=== PATIENT | male | born 1930 | race Caucasian/White ===

== ENCOUNTER 2017-09-20 11:43 | Observation (INO) | payer MEDICARE, MEDICAID ==
[2017-09-21 00:57] LABS: ADD MAN DIFF? NO
[2017-09-21] MEDS: SOD CHLORIDE 0.9% 500 ML IV (00:57)
[2017-09-21 01:12] LABS: WHITE BLOOD COUNT 7.6 10^3/ul (4.8-10.8)
[2017-09-21 01:12] LABS: BASOPHIL # 0.1 10^3/ul (0.0-0.1); BASOPHILS % 0.8 % (0.0-2.0); EOSINOPHILS # 0.5 10^3/ul (0.0-0.5); EOSINOPHILS % 6.9 % (0.0-7.0); HEMOGLOBIN 12.4 g/dl (14.0-18.0); LYMPHOCYTES # 1.4 10^3/ul (0.8-2.9); LYMPHOCYTES % 17.7 % (15.0-51.0); MEAN CORPUSCULAR HEMOGLOBIN 31.4 pg (29.0-33.0); MEAN CORPUSCULAR HGB CONC 34.4 g/dl (32.0-37.0); MEAN CORPUSCULAR VOLUME 91.1 fl (82.0-101.0); MEAN PLATELET VOLUME 10.7 fl (7.4-10.4); MONOCYTE # 0.6 10^3/ul (0.3-0.9); NEUTROPHIL # 5.1 10^3/ul (1.6-7.5); NEUTROPHILS % 66.3 % (39.0-77.0); PLATELET COUNT 211 10^3/UL (140-415); RED BLOOD COUNT 3.95 10^6/ul (4.70-6.10); RED CELL DISTRIBUTION WIDTH 13.6 % (11.5-14.5)
[2017-09-21 01:25] LABS: ALANINE AMINOTRANSFERASE 25 IU/L (13-69); ALBUMIN 4.1 g/dl (3.3-4.9); ALBUMIN/GLOBULIN RATIO 1.32; ALKALINE PHOSPHATASE 76 IU/L (42-121); ANION GAP 15 (8-16); ASPARTATE AMINO TRANSFERASE 18 IU/L (15-46); BILIRUBIN,INDIRECT 0.2 mg/dl (0-1.1); BILIRUBIN,TOTAL 0.2 mg/dl (0.2-1.3); BLOOD UREA NITROGEN 24 mg/dl (7-20); CALCIUM 8.8 mg/dl (8.4-10.2); CARBON DIOXIDE 26 mmol/L (21-31); CHLORIDE 104 mmol/L (97-110); CREATININE 1.33 mg/dl (0.61-1.24); GLUCOSE 84 mg/dl (70-220); LIPASE 102 U/L (23-300); POTASSIUM 4.2 mmol/L (3.5-5.1); SODIUM 141 mmol/L (135-144); TOTAL PROTEIN 7.2 g/dl (6.1-8.1)
[2017-09-21] MEDS: PIPER-TAZO 3.375 GM IV (PMX) 50 ML IVPB (01:58)
[2017-09-21] MEDS ORDERED: morphine 2 MG INJ IV (05:00)
[2017-09-21] MEDS ORDERED: ACETAMINOPHEN 325 MG TAB PO (05:00)
[2017-09-21] MEDS ORDERED: ALBUTEROL/IPRATROPIUM (NEB) 3 ML AMP HHN (05:00)
[2017-09-21] MEDS ORDERED: HYDROCODONE/APAP (5/325) TAB PO (05:00)
[2017-09-21] MEDS ORDERED: ONDANSETRON 4 MG INJ IV (05:00)
[2017-09-21] MEDS ORDERED: NACL 0.9% 3 ML SYG IV (05:00)
[2017-09-21] MEDS: DOCUSATE SODIUM 100 MG CAP PO ×2 (09:05→21:15)
[2017-09-21] MEDS: FOLIC ACID 1 MG TAB PO (09:05)
[2017-09-21 09:18] LABS: ADD MAN DIFF? NO
[2017-09-21 09:20] LABS: BASOPHIL # 0.1 10^3/ul (0.0-0.1); BASOPHILS % 0.9 % (0.0-2.0); EOSINOPHILS # 0.5 10^3/ul (0.0-0.5); EOSINOPHILS % 6.2 % (0.0-7.0); HEMATOCRIT 41.4 % (42.0-52.0); HEMOGLOBIN 14.5 g/dl (14.0-18.0); LYMPHOCYTES # 1.2 10^3/ul (0.8-2.9); LYMPHOCYTES % 13.9 % (15.0-51.0); MEAN CORPUSCULAR HEMOGLOBIN 31.6 pg (29.0-33.0); MEAN CORPUSCULAR VOLUME 90.2 fl (82.0-101.0); MEAN PLATELET VOLUME 10.5 fl (7.4-10.4); MONOCYTE # 0.6 10^3/ul (0.3-0.9); MONOCYTES % 7.1 % (0.0-11.0); NEUTROPHIL # 6.1 10^3/ul (1.6-7.5); NEUTROPHILS % 71.6 % (39.0-77.0); PLATELET COUNT 225 10^3/UL (140-415); RED BLOOD COUNT 4.59 10^6/ul (4.70-6.10); RED CELL DISTRIBUTION WIDTH 13.5 % (11.5-14.5)
[2017-09-21 09:20] LABS: WHITE BLOOD COUNT 8.6 10^3/ul (4.8-10.8)
[2017-09-21] MEDS ORDERED: VANCOMYCIN IV PER PHARMACY XX (09:30)
[2017-09-21 09:39] LABS: HEMOGLOBIN A1C 5.3 % (0-5.9)
[2017-09-21 09:40] LABS: ALANINE AMINOTRANSFERASE 26 IU/L (13-69); ALBUMIN 4.3 g/dl (3.3-4.9); ALBUMIN/GLOBULIN RATIO 1.13; ALKALINE PHOSPHATASE 88 IU/L (42-121); ANION GAP 17 (8-16); ASPARTATE AMINO TRANSFERASE 21 IU/L (15-46); BILIRUBIN,INDIRECT 0.6 mg/dl (0-1.1); BILIRUBIN,TOTAL 0.6 mg/dl (0.2-1.3); BLOOD UREA NITROGEN 20 mg/dl (7-20); CALCIUM 9.6 mg/dl (8.4-10.2); CARBON DIOXIDE 27 mmol/L (21-31); CHLORIDE 104 mmol/L (97-110); CREATININE 1.23 mg/dl (0.61-1.24); GLUCOSE 91 mg/dl (70-220); POTASSIUM 4.1 mmol/L (3.5-5.1); SODIUM 144 mmol/L (135-144); TOTAL PROTEIN 8.1 g/dl (6.1-8.1)
[2017-09-21] MEDS: FAMOTIDINE 20 MG TAB PO (11:08)
[2017-09-21] MEDS: ASPIRIN 81 MG TAB PO (11:08)
[2017-09-21] MEDS: TRIMETHOPRIM/SULFAMETHOX (DS) TAB PO ×2 (11:08→21:15)
[2017-09-21] MEDS: HEPARIN 5,000 UNIT/0.5 ML VIAL SC ×2 (11:09→21:23)
[2017-09-21] MEDS: VANCOMYCIN 1 GM (PMX) 250 ML IVPB (11:09)
[2017-09-21] MEDS: DOXAZOSIN 4 MG TAB PO (19:45)
[2017-09-21] MEDS ORDERED: DOXAZOSIN 4 MG TAB PO (21:00)
[2017-09-21] MEDS: TAMSULOSIN (SR) 0.4 MG CAP PO (21:15)
[2017-09-22 06:21] LABS: ADD MAN DIFF? NO
[2017-09-22 06:37] LABS: BASOPHIL # 0.1 10^3/ul (0.0-0.1); BASOPHILS % 0.7 % (0.0-2.0); EOSINOPHILS # 0.4 10^3/ul (0.0-0.5); EOSINOPHILS % 5.6 % (0.0-7.0); HEMATOCRIT 35.9 % (42.0-52.0); HEMOGLOBIN 12.3 g/dl (14.0-18.0); LYMPHOCYTES # 1.3 10^3/ul (0.8-2.9); LYMPHOCYTES % 19.9 % (15.0-51.0); MEAN CORPUSCULAR HEMOGLOBIN 31.4 pg (29.0-33.0); MEAN CORPUSCULAR HGB CONC 34.3 g/dl (32.0-37.0); MEAN CORPUSCULAR VOLUME 91.6 fl (82.0-101.0); MEAN PLATELET VOLUME 10.8 fl (7.4-10.4); MONOCYTE # 0.5 10^3/ul (0.3-0.9); MONOCYTES % 7.7 % (0.0-11.0); NEUTROPHIL # 4.5 10^3/ul (1.6-7.5); PLATELET COUNT 209 10^3/UL (140-415); RED BLOOD COUNT 3.92 10^6/ul (4.70-6.10); RED CELL DISTRIBUTION WIDTH 13.3 % (11.5-14.5)
[2017-09-22 06:37] LABS: WHITE BLOOD COUNT 6.8 10^3/ul (4.8-10.8)
[2017-09-22] MEDS: FAMOTIDINE 20 MG TAB PO (06:39)
[2017-09-22 07:15] LABS: ANION GAP 18 (8-16); BLOOD UREA NITROGEN 27 mg/dl (7-20); CALCIUM 8.6 mg/dl (8.4-10.2); CARBON DIOXIDE 25 mmol/L (21-31); CHLORIDE 104 mmol/L (97-110); CREATININE 1.68 mg/dl (0.61-1.24); GLUCOSE 77 mg/dl (70-220); MAGNESIUM 2.1 mg/dl (1.7-2.5); PHOSPHORUS 4.2 mg/dl (2.5-4.9); POTASSIUM 4.3 mmol/L (3.5-5.1); SODIUM 143 mmol/L (135-144)
[2017-09-22] MEDS: TRIMETHOPRIM/SULFAMETHOX (DS) TAB PO (08:33)
[2017-09-22] MEDS: FOLIC ACID 1 MG TAB PO (08:33)
[2017-09-22] MEDS: DOCUSATE SODIUM 100 MG CAP PO (08:33)
[2017-09-22] MEDS: ASPIRIN 81 MG TAB PO (08:34)
[2017-09-22] MEDS: HEPARIN 5,000 UNIT/0.5 ML VIAL SC (08:45)
[2017-09-22] MEDS ORDERED: VANCOMYCIN 750 MG in DEXTROSE 5% 150 ML IVPB ×2 (11:00→23:00)
[2017-09-22] MEDS: SOD CHLORIDE 0.9% 250 ML IV (12:49)
[2017-09-22] MEDS ORDERED: TRIMETHOPRIM/SULFAMETHOX (SS) TAB PO (21:00)
== END 2017-09-22 18:25 | disposition home or self-care (01) ==
LOC: MS2 09-21 22:05 → E/R 11:43 → MS2 09-21 02:27
DX: L03.115 Cellulitis of right lower limb (principal); K21.9 Gastro-esophageal reflux disease without esophagitis; I10 Essential (primary) hypertension; I48.91 Unspecified atrial fibrillation; E78.5 Hyperlipidemia, unspecified; N40.0 Benign prostatic hyperplasia without lower urinary tract symptoms; Z89.512 Acquired absence of left leg below knee; Z79.82 Long term (current) use of aspirin
CPT/HCPCS: 36415; 73718; 80048; 80053; 83036; 83690; 83735; 84100; 85025; 87040; 96372; 96374; 96375; 99285-25

== ENCOUNTER 2017-11-04 05:43 | Inpatient (IN) | payer MEDICARE ==
[2017-11-04 06:33] LABS: ADD MAN DIFF? NO
[2017-11-04 06:47] LABS: BASOPHIL # 0.1 10^3/ul (0.0-0.1); BASOPHILS % 0.8 % (0.0-2.0); EOSINOPHILS # 0.6 10^3/ul (0.0-0.5); EOSINOPHILS % 7.2 % (0.0-7.0); HEMATOCRIT 35.7 % (42.0-52.0); HEMOGLOBIN 12.6 g/dl (14.0-18.0); LYMPHOCYTES # 1.1 10^3/ul (0.8-2.9); LYMPHOCYTES % 14.3 % (15.0-51.0); MEAN CORPUSCULAR HGB CONC 35.3 g/dl (32.0-37.0); MEAN CORPUSCULAR VOLUME 90.6 fl (82.0-101.0); MEAN PLATELET VOLUME 10.7 fl (7.4-10.4); MONOCYTE # 0.4 10^3/ul (0.3-0.9); MONOCYTES % 5.4 % (0.0-11.0); NEUTROPHIL # 5.6 10^3/ul (1.6-7.5); NEUTROPHILS % 71.9 % (39.0-77.0); PLATELET COUNT 241 10^3/UL (140-415); RED BLOOD COUNT 3.94 10^6/ul (4.70-6.10); RED CELL DISTRIBUTION WIDTH 13.5 % (11.5-14.5)
[2017-11-04 06:47] LABS: WHITE BLOOD COUNT 7.8 10^3/ul (4.8-10.8)
[2017-11-04 06:56] LABS: ALANINE AMINOTRANSFERASE 32 IU/L (13-69); ALBUMIN/GLOBULIN RATIO 1.25; ALKALINE PHOSPHATASE 81 IU/L (42-121); ANION GAP 14 (8-16); ASPARTATE AMINO TRANSFERASE 22 IU/L (15-46); BILIRUBIN,INDIRECT 0.4 mg/dl (0-1.1); BILIRUBIN,TOTAL 0.4 mg/dl (0.2-1.3); CARBON DIOXIDE 28 mmol/L (21-31); CHLORIDE 106 mmol/L (97-110); GLUCOSE 93 mg/dl (70-220); TOTAL PROTEIN 7.2 g/dl (6.1-8.1)
[2017-11-04 06:58] LABS: INR 1.09; PROTIME 14.2 Sec (11.9-14.9); PT RATIO 1.1
[2017-11-04] MEDS ORDERED: ACETAMINOPHEN 1000 MG/100 ML IVPB (07:00)
[2017-11-04 07:13] LABS: BLOOD UREA NITROGEN 24 mg/dl (7-20); CREATININE 1.19 mg/dl (0.61-1.24); POTASSIUM 3.9 mmol/L (3.5-5.1); SODIUM 144 mmol/L (135-144)
[2017-11-04] MEDS ORDERED: THROMBIN 5000 UNIT VIAL (07:37)
[2017-11-04] MEDS ORDERED: LIDOCAINE 1% (MPF) 30 ML INJ (07:37)
[2017-11-04] MEDS ORDERED: HEPARIN 1000 UNITS/ML 10 ML INJ ×2 (07:37→10:37)
[2017-11-04] MEDS ORDERED: GELATIN SIZE 100 SPONGE (07:37)
[2017-11-04] MEDS ORDERED: HEPARIN 1000 UNITS/NS (A-LINE) 0 ML (07:37)
[2017-11-04 07:43] LABS: PARTIAL THROMBOPLASTIN TIME 35.3 Sec (25.0-35.0)
[2017-11-04] MEDS: THROMBIN 5000 UNIT VIAL TOP (07:45)
[2017-11-04] MEDS: GELATIN SIZE 100 SPONGE TOP (07:45)
[2017-11-04] MEDS: HEPARIN 1000 UNITS/ML 10 ML INJ IRR (07:45)
[2017-11-04] MEDS ORDERED: MIDAZOLAM 1 MG/ML 2 ML INJ (07:53)
[2017-11-04] MEDS ORDERED: ETOMIDATE 20 MG INJ (07:53)
[2017-11-04] MEDS ORDERED: ONDANSETRON 4 MG INJ (07:53)
[2017-11-04] MEDS ORDERED: METOCLOPRAMIDE 10 MG INJ (07:53)
[2017-11-04] MEDS ORDERED: ROCURONIUM 50 MG INJ (07:53)
[2017-11-04] MEDS ORDERED: CEFAZOLIN 1 GM INJ (07:55)
[2017-11-04] MEDS ORDERED: FENTAnyl 50 MCG/ML VIAL (08:11)
[2017-11-04] MEDS ORDERED: PROPOFOL 20 ML (08:25)
[2017-11-04] MEDS ORDERED: HYDROmorphONE 2 MG/ML SYG (09:05)
[2017-11-04] MEDS ORDERED: HYDROmorphONE (0.2 MG/ML) 10ML SYG IV ×3 (11:30)
[2017-11-04] MEDS ORDERED: HYDROmorphONE 1 MG/ML SYG IV (11:30)
[2017-11-04] MEDS ORDERED: HYDROmorphONE 0.5 MG/0.5 ML SYG IV (11:30)
[2017-11-04] MEDS ORDERED: hydrALAzine 20 MG INJ IV (11:30)
[2017-11-04] MEDS ORDERED: ONDANSETRON 4 MG INJ IV (11:30)
[2017-11-04] MEDS: LABETALOL HCL 20MG INJ IV (13:18)
[2017-11-04] MEDS ORDERED: niCARdipine 50 MG in SOD CHLORIDE 0.9% 480 ML IV (13:30)
[2017-11-04] MEDS: ONDANSETRON 4 MG INJ IV (14:11)
[2017-11-04] MEDS: ASPIRIN 81 MG TAB PO (15:21)
[2017-11-04] MEDS: CLOPIDOGREL 75 MG TAB PO (15:21)
[2017-11-04] MEDS: hydrALAzine 20 MG INJ IV (18:10)
[2017-11-04] MEDS: HYDROmorphONE 0.5 MG/0.5 ML SYG IV (21:23)
[2017-11-04] MEDS: LABETALOL 100 MG TAB PO (21:23)
[2017-11-05] MEDS: HYDROmorphONE 0.5 MG/0.5 ML SYG IV (00:40)
[2017-11-05] MEDS ORDERED: ACETAMINOPHEN 650 MG SUPP PR (10:30)
[2017-11-05] MEDS ORDERED: ACETAMINOPHEN 325 MG TAB PO (10:30)
[2017-11-05] MEDS ORDERED: DOCUSATE SODIUM 100 MG CAP PO (10:30)
[2017-11-05] MEDS ORDERED: HYDROCODONE/APAP (5/325) TAB PO (10:30)
[2017-11-05] MEDS ORDERED: ONDANSETRON 4 MG INJ IV (10:30)
[2017-11-05] MEDS ORDERED: BISACODYL 10 MG SUPP PR (10:30)
[2017-11-05] MEDS: ASPIRIN 325 MG TAB PO (11:53)
[2017-11-05] MEDS: AMLODIPINE 10 MG TAB PO (11:54)
[2017-11-05] MEDS: LABETALOL 100 MG TAB PO ×2 (11:54→21:15)
[2017-11-05] MEDS: PANTOPRAZOLE 40 MG INJ IV (12:04)
[2017-11-05] MEDS: morphine 2 MG INJ IV (12:04)
[2017-11-05] MEDS: CLOPIDOGREL 75 MG TAB PO (14:30)
[2017-11-05] MEDS ORDERED: CLOPIDOGREL 75 MG TAB PO (15:30)
[2017-11-05] MEDS ORDERED: niCARdipine 50 MG in SOD CHLORIDE 0.9% 480 ML IV (16:00)
[2017-11-05] MEDS: LOSARTAN 50 MG TAB PO (16:05)
[2017-11-05] MEDS ORDERED: LABETALOL 100 MG TAB PO (21:00)
[2017-11-06] MEDS: HYDROmorphONE 0.5 MG/0.5 ML SYG IV (00:28)
[2017-11-06 05:30] LABS: ADD MAN DIFF? NO
[2017-11-06 05:34] LABS: BASOPHILS % 0.3 % (0.0-2.0); EOSINOPHILS # 0.3 10^3/ul (0.0-0.5); EOSINOPHILS % 2.8 % (0.0-7.0); HEMATOCRIT 26.4 % (42.0-52.0); HEMOGLOBIN 8.8 g/dl (14.0-18.0); LYMPHOCYTES % 9.7 % (15.0-51.0); MEAN CORPUSCULAR HGB CONC 33.3 g/dl (32.0-37.0); MEAN PLATELET VOLUME 11.2 fl (7.4-10.4); MONOCYTES % 10.3 % (0.0-11.0); NEUTROPHIL # 7.5 10^3/ul (1.6-7.5); NEUTROPHILS % 76.5 % (39.0-77.0); PLATELET COUNT 182 10^3/UL (140-415); RED BLOOD COUNT 2.84 10^6/ul (4.70-6.10); RED CELL DISTRIBUTION WIDTH 13.2 % (11.5-14.5)
[2017-11-06 05:34] LABS: WHITE BLOOD COUNT 9.8 10^3/ul (4.8-10.8)
[2017-11-06] MEDS: PANTOPRAZOLE 40 MG INJ IV (06:00)
[2017-11-06 06:09] LABS: ALANINE AMINOTRANSFERASE 22 IU/L (13-69); ALBUMIN 3.2 g/dl (3.3-4.9); ALBUMIN/GLOBULIN RATIO 1.23; ALKALINE PHOSPHATASE 57 IU/L (42-121); ANION GAP 12 (8-16); ASPARTATE AMINO TRANSFERASE 29 IU/L (15-46); BILIRUBIN,INDIRECT 0.6 mg/dl (0-1.1); BILIRUBIN,TOTAL 0.6 mg/dl (0.2-1.3); BLOOD UREA NITROGEN 36 mg/dl (7-20); CALCIUM 8.9 mg/dl (8.4-10.2); CARBON DIOXIDE 26 mmol/L (21-31); CHLORIDE 105 mmol/L (97-110); CHOL/HDL RATIO 3.1 RATIO; CHOLESTEROL 127 mg/dl (100-200); CREATININE 1.27 mg/dl (0.61-1.24); GLUCOSE 110 mg/dl (70-220); HDL CHOLESTEROL 40 mg/dl (31-75); LDL CHOLESTEROL,CALCULATED 76 mg/dl; MAGNESIUM 2.1 mg/dl (1.7-2.5); PHOSPHORUS 3.4 mg/dl (2.5-4.9); POTASSIUM 4.8 mmol/L (3.5-5.1); SODIUM 138 mmol/L (135-144); TOTAL PROTEIN 5.8 g/dl (6.1-8.1); TRIGLYCERIDES 54 mg/dl (0-149)
[2017-11-06 06:26] LABS: FREE THYROXINE INDEX (Calc) 2.53 ug/ml (0.65-3.89); T3 UPTAKE 38.4 % (23.5-40.5); T4 (THYROXINE) 6.6 ug/dl (5.5-11.0)
[2017-11-06] MEDS: morphine 2 MG INJ IV ×2 (07:54→12:19)
[2017-11-06 08:20] LABS: HEMOGLOBIN A1C 5.3 % (0-5.9)
[2017-11-06] MEDS ORDERED: AMLODIPINE 10 MG TAB PO (09:00)
[2017-11-06] MEDS: ASPIRIN 325 MG TAB PO (09:32)
[2017-11-06] MEDS: CLOPIDOGREL 75 MG TAB PO (09:32)
[2017-11-06] MEDS: LOSARTAN 50 MG TAB PO (09:33)
[2017-11-06] MEDS: AMLODIPINE 10 MG TAB PO (09:33)
[2017-11-06] MEDS: LABETALOL 100 MG TAB PO ×2 (09:35→20:12)
[2017-11-07] MEDS: PANTOPRAZOLE 40 MG INJ IV (05:48)
[2017-11-07] MEDS: MAGNESIUM HYDROXIDE 30ML CUP PO (05:48)
[2017-11-07 06:28] LABS: ADD MAN DIFF? NO
[2017-11-07 06:37] LABS: WHITE BLOOD COUNT 8.7 10^3/ul (4.8-10.8)
[2017-11-07 06:37] LABS: BASOPHILS % 0.2 % (0.0-2.0); EOSINOPHILS # 0.2 10^3/ul (0.0-0.5); EOSINOPHILS % 1.8 % (0.0-7.0); HEMATOCRIT 21.9 % (42.0-52.0); HEMOGLOBIN 7.6 g/dl (14.0-18.0); LYMPHOCYTES # 0.9 10^3/ul (0.8-2.9); LYMPHOCYTES % 9.9 % (15.0-51.0); MEAN CORPUSCULAR HEMOGLOBIN 31.3 pg (29.0-33.0); MEAN CORPUSCULAR HGB CONC 34.7 g/dl (32.0-37.0); MEAN CORPUSCULAR VOLUME 90.1 fl (82.0-101.0); MEAN PLATELET VOLUME 11.3 fl (7.4-10.4); MONOCYTE # 0.7 10^3/ul (0.3-0.9); MONOCYTES % 8.3 % (0.0-11.0); NEUTROPHIL # 6.9 10^3/ul (1.6-7.5); NEUTROPHILS % 79.5 % (39.0-77.0); PLATELET COUNT 152 10^3/UL (140-415); RED BLOOD COUNT 2.43 10^6/ul (4.70-6.10); RED CELL DISTRIBUTION WIDTH 13.4 % (11.5-14.5)
[2017-11-07 06:59] LABS: ANION GAP 13 (8-16); BLOOD UREA NITROGEN 39 mg/dl (7-20); CALCIUM 8.4 mg/dl (8.4-10.2); CARBON DIOXIDE 24 mmol/L (21-31); CHLORIDE 106 mmol/L (97-110); CREATININE 1.27 mg/dl (0.61-1.24); GLUCOSE 105 mg/dl (70-220); POTASSIUM 4.3 mmol/L (3.5-5.1); SODIUM 139 mmol/L (135-144)
[2017-11-07] MEDS: ASPIRIN 325 MG TAB PO (08:20)
[2017-11-07] MEDS: LABETALOL 100 MG TAB PO ×2 (08:20→20:56)
[2017-11-07] MEDS: AMLODIPINE 10 MG TAB PO (08:20)
[2017-11-07] MEDS: LOSARTAN 50 MG TAB PO (08:20)
[2017-11-07] MEDS: CLOPIDOGREL 75 MG TAB PO (08:21)
[2017-11-07 14:15] LABS: IRON 32 ug/dl (35-150)
[2017-11-07 14:25] LABS: % IRON SATURATION 14 % SAT (22-52); TOTAL IRON BINDING CAPACITY 221 ug/dl (241-421)
[2017-11-07] MEDS ORDERED: morphine LIQ (10 MG/5 ML) CUP PO (14:30)
[2017-11-07 14:51] LABS: FERRITIN 75.8 ng/ml (11.1-264.0)
[2017-11-08] MEDS: PANTOPRAZOLE 40 MG INJ IV (06:31)
[2017-11-08 06:41] LABS: ADD MAN DIFF? NO
[2017-11-08 06:47] LABS: BASOPHILS % 0.2 % (0.0-2.0); EOSINOPHILS # 0.3 10^3/ul (0.0-0.5); HEMATOCRIT 21.3 % (42.0-52.0); HEMOGLOBIN 7.4 g/dl (14.0-18.0); LYMPHOCYTES # 0.7 10^3/ul (0.8-2.9); LYMPHOCYTES % 8.7 % (15.0-51.0); MEAN CORPUSCULAR HEMOGLOBIN 31.9 pg (29.0-33.0); MEAN CORPUSCULAR HGB CONC 34.7 g/dl (32.0-37.0); MEAN CORPUSCULAR VOLUME 91.8 fl (82.0-101.0); MEAN PLATELET VOLUME 11.4 fl (7.4-10.4); MONOCYTE # 0.7 10^3/ul (0.3-0.9); MONOCYTES % 8.2 % (0.0-11.0); NEUTROPHIL # 6.3 10^3/ul (1.6-7.5); NEUTROPHILS % 78.5 % (39.0-77.0); PLATELET COUNT 184 10^3/UL (140-415); RED BLOOD COUNT 2.32 10^6/ul (4.70-6.10); RED CELL DISTRIBUTION WIDTH 13.6 % (11.5-14.5)
[2017-11-08 06:47] LABS: WHITE BLOOD COUNT 8.1 10^3/ul (4.8-10.8)
[2017-11-08] MEDS: MAGNESIUM HYDROXIDE 30ML CUP PO (06:59)
[2017-11-08 07:07] LABS: MAGNESIUM 2.6 mg/dl (1.7-2.5)
[2017-11-08 07:07] LABS: PHOSPHORUS 3.7 mg/dl (2.5-4.9)
[2017-11-08 07:18] LABS: ANION GAP 13 (8-16); BLOOD UREA NITROGEN 38 mg/dl (7-20); CALCIUM 8.5 mg/dl (8.4-10.2); CARBON DIOXIDE 27 mmol/L (21-31); CHLORIDE 105 mmol/L (97-110); CREATININE 1.23 mg/dl (0.61-1.24); GLUCOSE 104 mg/dl (70-220); POTASSIUM 4.4 mmol/L (3.5-5.1); SODIUM 141 mmol/L (135-144)
[2017-11-08] MEDS: CLOPIDOGREL 75 MG TAB PO (08:32)
[2017-11-08] MEDS: LABETALOL 100 MG TAB PO ×2 (08:32→21:25)
[2017-11-08] MEDS: ASPIRIN 325 MG TAB PO (08:32)
[2017-11-08] MEDS: AMLODIPINE 10 MG TAB PO (08:32)
[2017-11-08] MEDS: LOSARTAN 50 MG TAB PO (08:33)
[2017-11-09] MEDS: PANTOPRAZOLE 40 MG INJ IV (06:34)
[2017-11-09 07:08] LABS: ADD MAN DIFF? NO
[2017-11-09 07:11] LABS: WHITE BLOOD COUNT 7.4 10^3/ul (4.8-10.8)
[2017-11-09 07:11] LABS: BASOPHILS % 0.4 % (0.0-2.0); EOSINOPHILS # 0.4 10^3/ul (0.0-0.5); EOSINOPHILS % 5.8 % (0.0-7.0); HEMOGLOBIN 7.7 g/dl (14.0-18.0); LYMPHOCYTES # 0.8 10^3/ul (0.8-2.9); LYMPHOCYTES % 10.6 % (15.0-51.0); MEAN CORPUSCULAR HEMOGLOBIN 31.4 pg (29.0-33.0); MEAN CORPUSCULAR HGB CONC 33.5 g/dl (32.0-37.0); MEAN CORPUSCULAR VOLUME 93.9 fl (82.0-101.0); MEAN PLATELET VOLUME 10.8 fl (7.4-10.4); MONOCYTE # 0.7 10^3/ul (0.3-0.9); NEUTROPHIL # 5.5 10^3/ul (1.6-7.5); NEUTROPHILS % 73.8 % (39.0-77.0); PLATELET COUNT 211 10^3/UL (140-415); RED BLOOD COUNT 2.45 10^6/ul (4.70-6.10); RED CELL DISTRIBUTION WIDTH 13.3 % (11.5-14.5)
[2017-11-09 07:35] LABS: ANION GAP 13 (8-16); BLOOD UREA NITROGEN 42 mg/dl (7-20); CALCIUM 8.6 mg/dl (8.4-10.2); CARBON DIOXIDE 27 mmol/L (21-31); CHLORIDE 106 mmol/L (97-110); CREATININE 1.38 mg/dl (0.61-1.24); GLUCOSE 100 mg/dl (70-220); POTASSIUM 4.4 mmol/L (3.5-5.1); SODIUM 142 mmol/L (135-144)
[2017-11-09 07:38] LABS: MAGNESIUM 2.7 mg/dl (1.7-2.5)
[2017-11-09 07:38] LABS: PHOSPHORUS 3.9 mg/dl (2.5-4.9)
[2017-11-09] MEDS: CLOPIDOGREL 75 MG TAB PO (08:21)
[2017-11-09] MEDS: ASPIRIN 325 MG TAB PO (08:21)
[2017-11-09] MEDS: LOSARTAN 50 MG TAB PO (08:22)
[2017-11-09] MEDS: LABETALOL 100 MG TAB PO ×2 (08:22→20:49)
[2017-11-09] MEDS: AMLODIPINE 10 MG TAB PO (12:02)
[2017-11-10 05:32] LABS: ADD MAN DIFF? NO
[2017-11-10 05:38] LABS: BASOPHILS % 0.5 % (0.0-2.0); EOSINOPHILS # 0.4 10^3/ul (0.0-0.5); EOSINOPHILS % 5.7 % (0.0-7.0); HEMATOCRIT 22.5 % (42.0-52.0); HEMOGLOBIN 7.7 g/dl (14.0-18.0); LYMPHOCYTES # 0.9 10^3/ul (0.8-2.9); LYMPHOCYTES % 11.6 % (15.0-51.0); MEAN CORPUSCULAR HEMOGLOBIN 31.4 pg (29.0-33.0); MEAN CORPUSCULAR HGB CONC 34.2 g/dl (32.0-37.0); MEAN CORPUSCULAR VOLUME 91.8 fl (82.0-101.0); MEAN PLATELET VOLUME 10.6 fl (7.4-10.4); MONOCYTE # 0.7 10^3/ul (0.3-0.9); MONOCYTES % 9.5 % (0.0-11.0); NEUTROPHIL # 5.5 10^3/ul (1.6-7.5); NEUTROPHILS % 72.2 % (39.0-77.0); PLATELET COUNT 217 10^3/UL (140-415); RED BLOOD COUNT 2.45 10^6/ul (4.70-6.10); RED CELL DISTRIBUTION WIDTH 13.2 % (11.5-14.5)
[2017-11-10 05:38] LABS: WHITE BLOOD COUNT 7.7 10^3/ul (4.8-10.8)
[2017-11-10] MEDS: PANTOPRAZOLE 40 MG INJ IV (06:19)
[2017-11-10 06:49] LABS: ANION GAP 14 (8-16); BLOOD UREA NITROGEN 50 mg/dl (7-20); CALCIUM 8.8 mg/dl (8.4-10.2); CARBON DIOXIDE 27 mmol/L (21-31); CHLORIDE 105 mmol/L (97-110); CREATININE 1.29 mg/dl (0.61-1.24); GLUCOSE 99 mg/dl (70-220); POTASSIUM 4.4 mmol/L (3.5-5.1); SODIUM 142 mmol/L (135-144)
[2017-11-10 06:57] LABS: MAGNESIUM 2.6 mg/dl (1.7-2.5)
[2017-11-10] MEDS: CLOPIDOGREL 75 MG TAB PO (08:22)
[2017-11-10] MEDS: ASPIRIN 325 MG TAB PO (08:22)
[2017-11-10] MEDS: AMLODIPINE 10 MG TAB PO (08:23)
[2017-11-10] MEDS: LOSARTAN 50 MG TAB PO (08:23)
[2017-11-10] MEDS: LABETALOL 100 MG TAB PO (08:23)
[2017-11-10] MEDS: FERROUS FUMARATE (SR) TAB PO (14:53)
[2017-11-10] MEDS: HYDROCODONE/APAP (5/325) TAB PO (18:17)
== END 2017-11-10 18:40 | DRG 253 ==
LOC: REC 05:43 → TEL 11-06 10:09 → MS2 11-10 13:20 → ICU 12:57 → MS2 11-09 18:54
PROC: 041K09Q Bypass Right Femoral Artery to Lower Extremity Artery with Autologous Venous Tissue, Open Approach (ICD-10-PCS; principal; 2017-11-04 08:03)
PROC: 06BP0ZZ Excision of Right Saphenous Vein, Open Approach (ICD-10-PCS; 2017-11-04 08:03)
DX: E11.51 Type 2 diabetes mellitus with diabetic peripheral angiopathy without gangrene (principal); N17.9 Acute kidney failure, unspecified; I48.0 Paroxysmal atrial fibrillation; L97.519 Non-pressure chronic ulcer of other part of right foot with unspecified severity; D64.9 Anemia, unspecified; I10 Essential (primary) hypertension; N40.0 Benign prostatic hyperplasia without lower urinary tract symptoms; I25.10 Atherosclerotic heart disease of native coronary artery without angina pectoris; Z89.512 Acquired absence of left leg below knee; Z87.891 Personal history of nicotine dependence
CPT/HCPCS: 71045; 80048; 80053; 80061; 82728; 82962; 83036; 83540; 83735; 84100; 84436; 84443; 84479; 85025; 85610; 85730; 86850; 86900; 86901; 87081; 93005; 97116; 97163; 97530